=== PATIENT | female | born 1985 | race Caucasian/White ===

== ENCOUNTER 2023-01-19 07:59 | Inpatient (IN) ==
--- NOTE | 2023-01-10 15:56 | Anesthesiology Consultation ---
Date of Service January 10, 2023 Assessment & Plan (1) Encounter for pre-operative examination: - Per fine dining server on 01/10/2023: No known infectious disease contacts, current infectious disease symptoms in past 10 days or COVID positive test result in the past 90 days. Chart Review Chart Review: Acceptable Risk for Surgery and Patient NOT seen in Pre Admission Testing History Surgery Operation Date: 01/19/23 13:45 Proposed Procedures p L4-L5 Revision Decompression and Fusion w/ Spinal Cord Monitoring - Erick Jordan DO Height/Weight Height: 5 ft 1 in Weight: 80.286 kg Allergies Allergy/AdvReac Type Severity Reaction Status Date / Time morphine Allergy Anaphylaxis Verified 01/10/23 15:39 Tetanus Vaccines and Toxoid Allergy Anaphylaxis Verified 01/10/23 15:39 Medications Home Medications Medication Instructions Recorded Confirmed Last Taken omeprazole 40 mg capsule,delayed 40 mg PO BID 01/10/23 01/10/23 Unknown release Past Medical History Medical History DDD (degenerative disc disease), lumbar GERD (gastroesophageal reflux disease) Hx of migraines Past Surgical History Surgical History History of back surgery History of carpal tunnel surgery of right wrist History of cholecystectomy History of colonoscopy History of esophagogastroduodenoscopy (EGD) History of hysterectomy History of sleeve gastrectomy History of wisdom tooth extraction Social History Smoking Status: Former smoker Do You Dip or Chew Tobacco: No Smoking End Date: 2 years ago Hx Alcohol Use: No Hx Substance Use: No substance use type: does not use Lab Results Anesthesia Preop Results Results Anesthesia Widget: WBC 10.42 K/ul (4.8-10.8) 01/03/23 Hgb 14.6 g/dl (12.0-16.0) 01/03/23 Hct 42.9 % (37.0-47.0) 01/03/23 Plt 298 K/uL (130-400) 01/03/23 Na 136 mmol/L (136-145) 01/03/23 K 4.1 mmol/L (3.5-5.1) 01/03/23 Cl 107 mmol/L (98-107) 01/03/23 CO2 20 mmol/L (21-32) L 01/03/23 BUN 12 mg/dl (6-23) 01/03/23 Creat 0.83 mg/dl (0.6-1.2) 01/03/23 Glucose Level 79 mg/dl (70-99(Fasting)) 01/03/23 PT 10.7 Seconds (9.0-12.0) 01/03/23 PTT 28.0 Seconds (21.0-31.0) 01/03/23 INR 1.0 (0.9-1.1) 01/03/23 Urine Color Yellow 01/03/23 Urine Appearance Cloudy (Clear) A 01/03/23 Urine pH 5.5 (4.5-7.5) 01/03/23 Urine Specific Mclain 1.025 (1.000-1.030) 01/03/23 Urine Protein Negative (Negative) 01/03/23 Urine Glucose (UA) Negative (Negative) 01/03/23 Urine Ketones Negative (Negative) 01/03/23 Urine Blood Negative (Negative) 01/03/23 Urine Nitrite Negative (Negative) 01/03/23 Urine Bilirubin Negative (Negative) 01/03/23 Urine Urobilinogen Negative (Negative) 01/03/23 Urine Leukocyte Esterase Negative (Negative) 01/03/23 Urine WBC (Auto) 1-5 /hpf (0-5) 01/03/23 Urine RBC (Auto) 0-4 /hpf (0-4) 01/03/23 Urine Hyaline Casts (Auto) 1-5 /lpf (0-5) 01/03/23 Urine Epithelial Cells (Auto) >30 /lpf (0-5) H 01/03/23 Urine Bacteria (Auto) Negative (Negative) 01/03/23 Blood Type A Positive 01/03/23 Antibody Screen NEGATIVE 01/03/23 Testing Electrocardiogram Date: 01/03/23 NSR with sinus arrhythmia, rate 64 bpm Chest X-Ray Date: 01/03/23 No acute process
[~2023-01-19 07:59] MED LIST: ACETAMINOPHEN 500 MG TAB PO SCH; CeleBREX 200 MG CAP PO SCH; GABAPENTIN 900 MG DOSE PO SCH; LR 15ML/HR IV SCH; LR 60ML/HR IV SCH; ceFAZolin 2000MG 2,000 MG/15 ML SYR IV SCH
[2023-01-19] MEDS ORDERED: ROCURONIUM BROMIDE 10 MG/ML 5 ML VIAL IV ONE (08:58)
[2023-01-19] MEDS ORDERED: LIDOCAINE 2% 2 ML VIAL/AMP(20MG/ML) INFIL ONE (08:58)
[2023-01-19] MEDS ORDERED: PROPOFOL IV EMULSION 10 MG/ML 20 ML VIAL IV ONE (08:58)
[2023-01-19] MEDS ORDERED: DEXAMETHASONE SOD INJ 4 MG/ML VIAL ONE (08:58)
[2023-01-19] MEDS ORDERED: fentaNYL citrate PF 100 MCG/2 ML VIAL ONE (08:58)
[2023-01-19] MEDS ORDERED: MIDAZOLAM HCL 1 MG/ML 2ML VIAL ONE (08:58)
[2023-01-19] MEDS ORDERED: ONDANSETRON INJ 2 MG/ML 2 ML VIAL ONE (08:58)
[2023-01-19] MEDS ORDERED: PROMETHAZINE HCL 6.25 MG in SODIUM CHLORIDE 0.9% 50 ML IV PRN (09:09)
[2023-01-19] MEDS ORDERED: ONDANSETRON INJ 2 MG/ML 2 ML VIAL IV PRN ×2 (09:09→13:43)
[2023-01-19] MEDS ORDERED: ATROPINE SULFATE 0.1 MG/ML 10ML SYR IV PRN (09:09)
[2023-01-19] MEDS ORDERED: ePHEDrine sulfate 50 MG/ML AMP IV PRN (09:09)
[2023-01-19] MEDS ORDERED: SCOPOLAMINE 1 MG TDSY TD STA (09:35)
[2023-01-19] MEDS ORDERED: KETAMINE 50 MG/5 ML SYRINGE ONE (09:35)
[2023-01-19] MEDS ORDERED: SCOPOLAMINE 1 MG TDSY TD ONE (09:36)
--- NOTE | 2023-01-19 09:38 | History & Physical Bridge Note ---
Date of Service January 19, 2023 History & Physical Bridge Note I have examined the patient, reviewed the History & Physical and in the interval since the performance of the History & Physical I have noted the following changes of clinical significance: no changes noted
--- NOTE | 2023-01-19 09:38 | History & Physical Report ---
Date of Service January 19, 2023 Assessment & Plan (1) Neurogenic claudication due to lumbar spinal stenosis: Plan: L4-L5 revision decompression and fusion History of Present Illness Chief Complaint: Back and leg pain Primary Care Provider: Cresencio Ford This is a 37-year-old female presents with chronic persistent back and leg pain after failing extensive course of nonoperative care is here for surgical intervention. Allergies Allergy/AdvReac Type Severity Reaction Status Date / Time morphine Allergy Anaphylaxis Verified 01/19/23 08:16 Tetanus Vaccines and Toxoid Allergy Anaphylaxis Verified 01/19/23 08:16 Home Medications Medication Instructions Recorded Confirmed Type omeprazole 40 mg capsule,delayed 40 mg PO BID 01/10/23 01/19/23 History release Past Med/Surg History Medical History DDD (degenerative disc disease), lumbar GERD (gastroesophageal reflux disease) Hx of migraines Surgical History History of back surgery History of carpal tunnel surgery of right wrist History of cholecystectomy History of colonoscopy History of esophagogastroduodenoscopy (EGD) History of hysterectomy History of sleeve gastrectomy History of wisdom tooth extraction Social History Smoking Status: Former smoker Smoking End Date: 2 years ago; Second Hand Exposure: Yes ( smokes); Do You Dip or Chew Tobacco: No; Tobacco Cessation Education Requested by Patient: No Hx Alcohol Use: No Hx Substance Use: No Preferred Language: [place] Communication Ability: Effective Blood Bank Order Control Clerk Required: No Beliefs That Will Affect Care: None Current Living Situation: Family Feels Safe at Home: Yes Safety Concerns: Feels Safe At This Time Assistive Devices: Glasses Physical Exam Physical Exam: Patient is alert and oriented Heart regular rhythm Lungs clear Results & Data Results & Data Vital Signs (Past 12 Hours) Vital Signs Temp Pulse Resp BP Pulse Ox O2 Del Method 01/19/23 08:19 36.7 C 75 20 100/59 L 97 Room Air
[2023-01-19] MEDS ORDERED: ceFAZolin 330 MG/ML 1 GM VIAL ONE (10:11)
[2023-01-19] MEDS ORDERED: BUPIVACAINE/EPINEPHRINE 0.25% 1:200,000 30 ML VIAL ONE (10:11)
[2023-01-19] MEDS ORDERED: FLOSEAL HEMOSTATIC MATRIX 10ML TOP ONE (11:07)
[2023-01-19] MEDS ORDERED: ePHEDrine sulfate 50 MG/ML SYR ONE (11:11)
[2023-01-19] MEDS ORDERED: SUGAMMADEX SODIUM 200 MG/2 ML VIAL IV ONE (11:39)
--- NOTE | 2023-01-19 11:49 | Operative Report ---
Post Operative Report Pre & Post Diagnosis Operation Date: 01/19/23 09:35 Pre-Op Diagnosis: Neurogenic claudication due to lumbar spinal stenosis Post-Op Diagnosis: Neurogenic claudication due to lumbar spinal stenosis I identified the patient and participated in the time-out.: Yes Procedure Operation Date: 01/19/23 09:35 Actual Procedures 1. Revision decompression bilateral medial facetectomies and foraminotomies L3- L4 L4-5. #2 posterior spinal fusion L4-L5. #3 placed posterior instrumentation L4-5. #4 interbody fusion L4-5 and #5 placement of Spira 12 x 26 mm at L4-5. #6 placement locally harvested morselized autograft in the posterior gutters. #7 placement of I factor commended the test interbody space and posterior gutters. Surgeon Erick Jordan, DO Milling Machine Operator Gear Melanie Valerio Estimated Blood Loss 50 Findings See Below The patient is 5 foot tall weighing over 81 kg with a BMI in excess of 35. The patient's body habitus did contribute to significant technical difficulty required deepest retractors and longer instruments in order to perform her procedure. This at least 50% increased operative time. Specimens none Indications This is a 32-year-old female who presents above-mentioned diagnosis after failing since course of nonoperative care she is here for surgical invention. Description of Procedure Patient was met with identified informed consent obtained. Patient was then taken to the operative suite underwent ablation placed in a prone position on the Jex table top Ankush frame. All bony prominences well-padded eyes inspected to ensure no external pressure placed upon the. This point lumbar spine was prepped and draped in a sterile fashion. Sharp dissection with the assistance of Bovie cautery performed down to expose the remaining lamina and transverse processes of L4-L5. From a caudal cephalad fashion revision complete laminectomy of L4 partial neck of L3 was performed including bilateral medial facetectomies and foraminotomies addressing severe spinal stenosis. Pedicle screws then placed in L4-L5 bilaterally with assistance of fluoroscopy and the properly sized adelfo placed. By way of transforaminal approach on the left complete discectomy of L4-5 was performed endplates curetted to subcortical bleeding bone and a 12 x 26 mm Spira cage with I factor tapped in position. The rods then compressed locked into final position bilaterally. The transverse processes of L4-5 burred to subcortical bleeding bone. I factor amount of the test and locally harvested morselized autograft was placed in the posterior gutters. 15 round BEULAH drain inserted. The incision was then closed with 1 Vicryl the fascia 2-0 Vicryl subcutaneously and 4 Monocryl for final skin closure. Steri-Strips sterile dressing placed. Patient waken taken to PACU stable condition. Please note spinal cord monitoring visualized at the procedure no changes noted. Lastly Melanie Valerio was present at the entire surgery and while the patient positioning complex portions of the surgery and final skin closure. I attest to the content of the Intraoperative Record and any orders documented therein. Any exceptions are noted below.
[2023-01-19] MEDS: fentaNYL citrate PF 100 MCG/2 ML VIAL IV PRN ×3 (12:18→12:40)
--- NOTE | 2023-01-19 13:32 | Anesthesiology Progress Note ---
Date of Service January 19, 2023 Anesthesia Post Procedure Vital Signs Vital Signs: Temp Pulse Pulse Resp BP Pulse Ox O2 Del Method 01/19/23 13:30 60 18 102/56 L 98 Nasal Cannula 01/19/23 13:20 58 L 18 105/60 98 Nasal Cannula 01/19/23 13:15 54 L 16 97/54 L 98 Nasal Cannula 01/19/23 13:05 57 L 13 92/48 L 98 Nasal Cannula 01/19/23 12:55 55 L 12 108/49 L 98 Nasal Cannula 01/19/23 12:45 36.2 C L 69 16 96/49 L 97 Nasal Cannula 01/19/23 12:35 62 16 99/55 L 97 Oxymask 01/19/23 12:25 73 14 97/60 L 96 Oxymask 01/19/23 12:15 94 H 18 100/63 98 Oxymask 01/19/23 12:07 36.3 C L 98 H 19 105/56 L 97 Oxymask 01/19/23 08:19 36.7 C 75 20 100/59 L 97 Room Air O2 Flow Rate 01/19/23 13:30 2 01/19/23 13:20 2 01/19/23 13:15 2 01/19/23 13:05 2 01/19/23 12:55 2 01/19/23 12:45 2 01/19/23 12:35 2 01/19/23 12:25 2 01/19/23 12:15 4 01/19/23 12:07 6 01/19/23 08:19 Pain Intensity Back: Pain Intensity: 3 Transfer of Care Handoff Completed per policy Notes Mental Status: alert / awake / arousable and participated in evaluation Patient Amnestic to Procedure: Yes Nausea / Vomiting: adequately controlled Pain: adequately controlled Airway Patency, RR, SpO2: stable & adequate BP & HR: stable & adequate Hydration State: stable & adequate Anesthetic Complications: no major complications apparent and Pt Satisfied with anesthetic care
[2023-01-19] MEDS ORDERED: GLYCOPYRROLATE 0.2 MG/ML VIAL ONE (13:39)
[2023-01-19] MEDS ORDERED: NALOXONE HCL 0.4 MG/1 ML VIAL/CARP IV PRN (13:43)
[2023-01-19] MEDS ORDERED: traMADol HCL 50 MG TABLET PO PRN (13:43)
[2023-01-19] MEDS ORDERED: MAGNESIUM HYDROXIDE SUSP 30 ML UDC PO PRN (13:43)
[2023-01-19] MEDS ORDERED: PROMETHAZINE HCL 12.5 MG in SODIUM CHLORIDE 0.9% 50 ML IV PRN (13:43)
[2023-01-19] MEDS ORDERED: DO NOT ADMINISTER PNEUMOCOCCAL VACCINE PRN (13:43)
[2023-01-19] MEDS ORDERED: HYDROmorphone INJ 1 MG/ML SYRINGE IV PRN (13:43)
[2023-01-19] MEDS ORDERED: METOCLOPRAMIDE HCL INJ 5 MG/ML 2 ML VIAL IV PRN (13:43)
[2023-01-19] MEDS ORDERED: DO NOT ADMINISTER FLU VACCINE PRN (13:43)
[2023-01-19] MEDS ORDERED: ACETAMINOPHEN 1,000 MG/100 ML VIAL IV PRN (13:43)
[2023-01-19] MEDS ORDERED: LORazepam 0.5 MG TAB PO PRN (13:43)
[2023-01-19] MEDS ORDERED: SOD PHOSPHATE/SOD BIPHOSPHATE ENEMA 132 ML BTL PR PRN (13:43)
[2023-01-19] MEDS ORDERED: ACETAMINOPHEN 500 MG TAB PO PRN (13:43)
[2023-01-19] MEDS ORDERED: ONDANSETRON 4 MG OD TAB PO PRN (13:43)
[2023-01-19] MEDS ORDERED: hydrOXYzine HCl 25 MG TAB PO PRN (13:43)
[2023-01-19] MEDS ORDERED: diphenhydrAMINE Capsule 25 MG CAP PO PRN (13:43)
[2023-01-19] MEDS ORDERED: FAMOTIDINE 20 MG TAB PO PRN (13:43)
[2023-01-19] MEDS ORDERED: bisacodyL 10 MG SUPP PR PRN (13:43)
[2023-01-19] MEDS ORDERED: LORazepam 2 MG/1 ML VIAL IV PRN (13:43)
[2023-01-19] MEDS ORDERED: ALUMINUM/MAGNESIUM SUSP 30 ML UDC PO PRN (13:43)
[2023-01-19] MEDS: HYDROmorphone INJ 0.5 MG/0.5 ML SYR IV PRN ×2 (14:10→20:45)
[2023-01-19] MEDS: LACTATED RINGER'S 1,000 ML IV SCH ×2 (14:12→22:40)
[2023-01-19] MEDS: CHECK SCOPOLAMINE PATCH PLACEMENT SCH ×2 (15:41→23:53)
[2023-01-19] MEDS: ceFAZolin 2000MG 2,000 MG/15 ML SYR IV SCH (18:25)
[2023-01-19] MEDS: oxyCODONE HCL IR 5 MG TAB (IMMEDIATE RELEASE) PO PRN (18:27)
--- NOTE | 2023-01-19 19:39 | Fluoroscopy Report ---
INTRAOPERATIVE RADIOGRAPHS CLINICAL HISTORY: L4-5 spinal fusion. Fluoro time: 25 seconds. Ka,r: 23.01 mGy FINDINGS: 3 spot fluoroscopic views of the lumbar spine are presented. There has been discectomy at L 4-L5 laminectomy and posterior fusion at this level. Interpedicular screws are in place. The orthoped ic hardware appears intact. IMPRESSION: Intraoperative images from lumbar spinal fusion surgery as above. Electronically signed by: Mikhail Pardo M.D. 01/19/2023 7:37 PM
[2023-01-19] MEDS: PANTOprazole 40 MG TAB PO SCH (20:45)
[2023-01-19] MEDS: DOCUSATE SODIUM/SENNA 50/8.6MG TAB PO SCH (20:45)
[2023-01-20] MEDS: oxyCODONE HCL IR 5 MG TAB (IMMEDIATE RELEASE) PO PRN ×3 (01:44→14:58)
[2023-01-20] MEDS: ceFAZolin 2000MG 2,000 MG/15 ML SYR IV SCH (01:45)
[2023-01-20] MEDS: POLYETHYLENE (MIRALAX) 17 GM PACK PO SCH ×2 (05:59→13:41)
[2023-01-20 06:44] LABS: BUN Creatinine Ratio 8.5 (10-20); Basophils # (auto) 0.03 K/uL (0-0.2); Basophils % (auto) 0.2 %; Calcium 8.9 mg/dl (8.6-10.3); Creatinine Clr Calc Pharmacy 101.4 ml/min; Est GFR (African American) 125.2 ml/min; Est GFR (Non-African American) 108.1 ml/min; Hematocrit (blood only) 34.2 % (37.0-47.0); Hemoglobin 11.4 g/dl (12.0-16.0); Immature Granulocytes # (auto) 0.07 K/uL (0.01-0.20); Immature Granulocytes % (auto) 0.4 %; Lymphocytes # (auto) 1.54 K/uL (1.2-3.4); Lymphocytes % (auto) 7.7 %; Mean Corpuscular Hemoglobin 29.5 pg (25.0-34.0); Mean Corpuscular Hgb Conc 33.3 g/dL (32.0-36.0); Mean Corpuscular Volume 88.4 fL (80.0-100.0); Mean Platelet Volume 10.2 fL (9.4-12.4); Monocytes # (auto) 0.89 K/uL (0.11-0.59); Monocytes % (auto) 4.5 %; Neutrophils # (auto) 17.38 K/uL (1.40-6.50); Neutrophils % (auto) 87.2 %; Platelet Count 265 K/uL (130-400); Potassium 4.7 mmol/L (3.5-5.1); RDW Coefficient of Variation 13.8 % (11.5-14.5); RDW Standard Deviation 44.6 fL (36.4-46.3); Red Blood Count 3.87 M/uL (4.20-5.40); White Blood Count 19.91 K/ul (4.8-10.8)
--- NOTE | 2023-01-20 08:33 | Operative Report ---
Post Operative Report Pre & Post Diagnosis Operation Date: 01/19/23 09:35 Pre-Op Diagnosis: Neurogenic claudication due to lumbar spinal stenosis Post-Op Diagnosis: Neurogenic claudication due to lumbar spinal stenosis I identified the patient and participated in the time-out.: Yes Procedure Operation Date: 01/19/23 09:35 Actual Procedures p L4-L5 Revision Decompression and Fusion, Spinal Cord Monitoring(Bilateral) - Erick Jordan DO Surgeon Erick Jordan DO Table Machine Operator Melanie Valerio Estimated Blood Loss 50 I attest to the content of the Intraoperative Record and any orders documented therein. Any exceptions are noted below.
--- NOTE | 2023-01-20 08:34 | Orthopedic Progress Note ---
Date of Service January 20, 2023 Assessment & Plan (1) Neurogenic claudication due to lumbar spinal stenosis: Plan: Will initiate physical therapy today monitor BEULAH operatively discharge home next few days. Admission and Anticipated Discharge Date Admission Date: January 19, 2023 Subjective Back pain controlled leg pain markedly improved Physical Exam Physical Exam: Patient is in the chair at the bedside. She is comfortable. Is consented testing. Results & Data Vital Signs (Past 12 Hours) Vital Signs Temp Pulse Resp BP Pulse Ox O2 Del Method 01/20/23 07:51 36.9 C 67 16 101/68 96 Room Air 01/20/23 03:26 36.8 C 66 18 96/61 L 99 Room Air 01/19/23 23:21 36.8 C 70 18 98/62 L 97 Room Air Queries Orthopedic Spine Obesity: Yes
[2023-01-20] MEDS: PANTOprazole 40 MG TAB PO SCH ×2 (09:24→20:45)
[2023-01-20] MEDS: dexAMETHasone 6 MG in SYRINGE 0 ML IV SCH (09:24)
[2023-01-20] MEDS: CHECK SCOPOLAMINE PATCH PLACEMENT SCH ×2 (09:27→17:13)
[2023-01-20] MEDS: HYDROmorphone INJ 0.5 MG/0.5 ML SYR IV PRN (20:45)
[2023-01-20] MEDS: DOCUSATE SODIUM/SENNA 50/8.6MG TAB PO SCH (20:45)
[2023-01-21] MEDS: CHECK SCOPOLAMINE PATCH PLACEMENT SCH ×2 (00:16→08:28)
[2023-01-21] MEDS: dexAMETHasone 6 MG in SYRINGE 0 ML IV SCH (08:28)
[2023-01-21] MEDS: PANTOprazole 40 MG TAB PO SCH (08:29)
--- NOTE | 2023-01-21 09:26 | Discharge Summary ---
Date of Service January 21, 2023 Admission HPI Per Admitting Provider This is a 37-year-old female presents with chronic persistent back and leg pain after failing extensive course of nonoperative care is here for surgical intervention. Principal Diagnosis Lumbar spinal stenosis with radiculopathy Discharge Data Allergies Allergy/AdvReac Type Severity Reaction Status Date / Time morphine Allergy Anaphylaxis Verified 01/19/23 08:16 Tetanus Vaccines and Toxoid Allergy Anaphylaxis Verified 01/19/23 08:16 Procedures Performed Operation Date: 01/19/23 09:35 Actual Procedures p L4-L5 Revision Decompression and Fusion, Spinal Cord Monitoring(Bilateral) - Erick Jordan DO Ordered Studies 01/19/23 09:35 FL lumbar spine 2-3V Routine Hospital Course (1) Neurogenic claudication due to lumbar spinal stenosis: Patient with lumbar decompression fusion trial as well as doing orthopedic for postoperative. Postop day 1 she was up and ambulate progress postop day 2. BEULAH drain decreasing probably. Excellent strength testing. Pain well-controlled. Subsequent discharge home. Discharge orders instructions from the chart for further review. Total Time Total Time Spent Total Time Spent (In Minutes): 20 minutes Discharge Plan Discharge Items Patient Disposition: Home - Self-Care Reason For Visit: Radiculopathy, Lumbar Region Discharge Diagnosis: Lumbar spinal stenosis with radiculopathy Activity: As commented below Non-emergency contact: Primary Care Provider Call non-emergency contact if: you have any medication questions Follow-up/Referrals: Cresencio Ford [Primary Care Provider] - Diet: Regular Addtl Attending Provider Instructions: ACTIVITY RECOMMENDATIONS: SELF CARE INSTRUCTIONS AFTER THORACIC/LUMBAR FUSIONS 1. You may walk to your tolerance. It is good exercise for your legs and back. Expect some back and intermittent leg aches and pains. 2. You may perform "counter-top" level activities (make a sandwich, carolee with a project, etc.). 3. No bending or lifting of more than 10 pounds or back twisting of any nature (roll like a log when turning in bed). 4. You may ride in a car for 20-30 minutes at a time. No driving until after your first visit with your doctor. 5. Frequent changes of position and restricting sitting to 30 minutes at a time will help limit the amount of back spasms and stiffness you may experience. 6. You may discontinue the use of ambulatory aids (cane, crutches, etc.) once your strength and confidence allow. 7. You may brand marketing specialist the shower and let water strike your incision when you arrive home at least once daily. Do not take a tub bath, sit in a hot tub or go into a swimming pool until after your first recheck in the office. SPECIAL CARE INSTRUCTIONS: VERY IMPORTANT TO READ AND REVIEW A. Your surgical incision has been closed with a cosmetic suture under the skin that will dissolve in about 6 weeks. In 14 days, you can use a pair of clean scissors and cut the suture that is left outside of the skin at the ends of your incision. 1. The small skin tapes can be removed 7 days after surgery if they have not fallen off by that point. 2. You may keep the wound open to air as much as possible to promote healing after post-op day number 5 unless told otherwise by your doctor. 3. If you think the wound looks like it is becoming infected (redness or worsening drainage) and/or you are experiencing fever, chill or worsening back pain and muscle spasms, contact the office so that we may evaluate you as soon as possible. B. Complications are uncommon, but please contact us if you have any signs or symptoms of: 1. wound infection (fever higher than 102.5 degrees F, redness, separation of wound, drainage, or increasing pain from the incision) 2. blood clots in legs (pain, swelling, redness and warmth in legs) 3. urinary tract infection (fever higher than 102.5 degrees F, burning upon urination or increased frequency of urination) 4. nerve problems (inability to walk on your toes or heels, numbness, loss of bowel or bladder control) 5. any other symptoms that concern you C. Please call the office at if you have any concerns or questions about your operation or recovery. D. No smoking! Smoking drastically decreases the chance of a solid fusion. E. Do not take any anti-inflammatory medications (Indocin, Advil, Motrin, Aspirin, Naprosyn, etc.) as these may inhibit the chance of a solid fusion. Tylenol is okay to take for pain. MANAGING PAIN AFTER SPINAL SURGERY 1. Narcotic medication is intended for short-term use and will be provided for surgical pain. Surgical pain usually lasts for a period of 4-6 weeks. Narcotic medication includes Percocet, Vicodin, Darvocet, Tylenol #3 or Lortab. 2. Longer-term pain is more appropriately treated with non-narcotic medication such as Tylenol ES. 3. Muscle spasm is not appropriately treated with narcotics. Muscle relaxers such as Soma, Flexeril or Skelaxin can be used along with Tylenol ES. 4. Remember that we all live with some "aches and pains". This is not unusual or uncommon after an injury or as we get older. a. Back pain is expected and may include muscle spasms for 4 to 6 weeks after surgery. The pain should gradually improve. If the pain worsens for no apparent reason, please contact the office. b. Intermittent leg pain may also be experienced and should not be concerned about unless it worsens for no apparent reason. If so, please contact the office. 5. We will provide appropriate medication within the normal guidelines of their prescribed use. We will also be very cautious and aware of potential abuse and extended duration of patients' medication needs. a. Pain medications are for your comfort and to assist with sleep and rest so that the tissue can heal. They are not provided in order to return to normal activity and should not be used through the day. To do so or worsening pain at night can result from ongoing tissue damage and development of tolerance to the prescribed medicine. 6. Please allow 2-3 days to process refills. Prescriptions will not be mailed but must be picked up at the office. FOLLOW UP VISIT: Keep your scheduled follow-up appointment. Any questions, please call the office at . Pending Studies at Discharge: No Stand-Alone Forms: My [facility] Convergent Radiotherapy, Smoking Cessation Medications and DC Order Prescriptions: New tramadol 50 mg tablet 50 mg PO Q6H PRN (Reason: pain, moderate) Qty: 30 0RF oxycodone 5 mg tablet 5 mg PO Q6H PRN (Reason: pain) Qty: 30 0RF Continued omeprazole 40 mg Capsule,Delayed Release(Dr/Ec) 40 mg PO BID Discharge Orders: Discharge Order (Routine); Ordered 01/21/23 Ordered By: Erick Jordan Admission Data Admit Date/Time: 01/19/23 11:52 Attending Provider: Erick Jordan Admit Provider: Erick Jordan Primary Care Provider: Cresencio Ford
[2023-01-21] MEDS: oxyCODONE HCL IR 5 MG TAB (IMMEDIATE RELEASE) PO PRN (10:43)
--- NOTE | 2023-01-23 09:23 | Coding Query ---
BMI To promote full compliance with coding requirements relating to patient care, physician participation is requested in all cases of inventory control assistant uncertainty. Please assist us with the question(s) below: Please place an X within the parenthesis (x). If other, please document: BMI in excess of 35 was documented in this record for this patient. If the BMI is significant, please check the box that provides a more specific associated diagnosis: ( ) Overweight/Obese ( ) Obesity (x ) Morbid obesity ( ) Obesity Hypoventilation Syndrome (OHS) ( ) Heathy weight, not significant ( ) Underweight/Thin ( ) Other, please specify Thank you Katia MURILLO
== END 2023-01-21 11:11 | disposition home or self-care (01) | DRG 455 ==
LOC: ASU 07:59 → 3E 11:52